=== PATIENT | male | born 1965 | race Caucasian/White ===

== ENCOUNTER 2019-06-17 11:13 | Outpatient (CLI) | payer OTHER, SELFPAY ==
--- NOTE | ~2019-06-17 | CT_ITS ---
EXAMINATION: CT soft tissue neck w con DATE: 06/17/2019 12:39 INDICATION: Left neck mass. TECHNIQUE: Computed tomography (CT) of the neck was performed with 75 mL Omnipaque-350 intravenous co ntrast. Automated exposure control and iterative reconstruction technique were employed. The dose-urban gth product was 513.31 mGy-cm. COMPARISON: Cervical spine CT 06/05/2014 FINDINGS: There is mild emphysema. There is plaque in the proximal internal carotid arteries with les s than 50% stenosis relative to normal distal artery lumen diameters. There is a skin marker at left anterior neck. There is no abnormal mass in this area. There are no pathologically enlarged lymph nod es. There is moderate cervical spondylosis. IMPRESSION: 1. No abnormal neck mass or lymphadenopathy. Reviewed, dictated and finalized at location A. [employer]
[2019-06-17 12:30] LABS: Blood Urea Nitrogen 14 mg/dL (8-26); Estimated Glomerular Filt Rate > 60
== END 2019-06-17 11:14 | disposition home or self-care (01) ==
DX: R22.1 Localized swelling, mass and lump, neck (principal)
CPT/HCPCS: 70491; Q9967